=== PATIENT | male | born 1975 | race Caucasian/White ===

== ENCOUNTER 2020-06-24 19:24 | Emergency (ER) | payer OTHER ==
[2020-06-24] MEDS ORDERED: IBUPROFEN 600 MG TABLET (FP) PO ONE ×2 (19:47→20:24)
--- NOTE | 2020-06-24 19:47 | PDOC ---
Rapid Medical Evaluation Time Seen by Provider: 06/24/20 19:45 Medical Evaluation: Allergies Allergy/AdvReac Type Severity Reaction Status Date / Time No Known Allergies Allergy Verified 01/31/20 20:05 06/24/20 19:45 I have performed a brief in-person examination on this patient. CC: left shoulder pain s/p slip and fall PE: No focal findings Orders: xray, motrin Patient will proceed to ED for further evaluation. Discharge Disposition - Diagnosis Shoulder pain - Referrals - Patient Instructions - Post Discharge Activity
[2020-06-24 19:49] VITALS: BP 147/73; PULSE 70; TEMP 97.9; BMI 29.2
--- OUTSIDE RECORDS SUMMARY | 2020-06-24 20:06 | XMS ---
:1975 Author Organization [facility] Support Name Relationship Address Phone [employer] [place] [address] FOOTE, AIMEE [address] [place] [address] AIMEE FOOTE Spouse [address] [place] [place] [address] Re-disclosure Warning The records that you are about to access may contain information from federally- assisted alcohol or drug abuse programs. If such information is present, then the following federally mandated warning applies: This information has been disclosed to you from records protected by federal confidentiality rules (42 CFR part 2). The federal rules prohibit you from making any further disclosure of this information unless further disclosure is expressly permitted by the written consent of the person to whom it pertains or as otherwise permitted by 42 CFR part 2. A general authorization for the release of medical or other information is NOT sufficient for this purpose. The Federal rules restrict any use of the information to criminally investigate or prosecute any alcohol or drug abuse patient.The records that you are about to access may contain highly sensitive health information, the redisclosure of which is protected by Article 27-F of the [facility] Public Health law. If you continue you may haveaccess to information: Regarding HIV / AIDS; Provided by facilities licensed or operated by the [facility] Office of Mental Health; or Provided by the [facility] Office for People With Developmental Disabilities. If such information is present, then the following [facility] mandated warning applies: This information has been disclosed to you from confidential records which are protected by state law. State law prohibits you from making any further disclosure of this information without the specific written consent of the person to whom it pertains, or as otherwise permitted by law. Any unauthorized further disclosure in violation of state law may result in a fine or prison sentence or both. A general authorization for the release of medical or other information is NOT sufficient authorization for further disclosure. Insurance Providers Payer name Policy type Policy ID Covered Covered alliance party's Policy P jose cruz / Coverage alliance party ID relationship to [place] [employer] type [place] [id number]
--- NOTE | 2020-06-24 20:37 | PDOC ---
History of Present Illness - General Chief Complaint: Injury Stated Complaint: FALL Time Seen by Provider: 06/24/20 19:45 - History of Present Illness Initial Comments: 06/24/20 20:35 45-year-old male without comorbidities presents for evaluation of left shoulder pain x1 week after a fall Past History - Medical History Allergies/Adverse Reactions: Allergies Allergy/AdvReac Type Severity Reaction Status Date / Time No Known Allergies Allergy Verified 01/31/20 20:05 Home Medications: Ambulatory Orders Diphenhydramine HCl [Benadryl -] 25 mg PO Q8H #15 capsule 01/31/20 Famotidine [Pepcid] 20 mg PO DAILY #5 tablet 01/31/20 predniSONE [Deltasone -] 40 mg PO DAILY #8 tablet 01/31/20 COPD: No - Psycho-Social/Smoking History Smoking History: Current some day smoker Number of Cigarettes Smoked Daily: 1 Information on smoking cessation initiated: Yes - Substance Abuse Hx (Audit-C & DAST Scrn) How often the patient has a drink containing alcohol: Monthly or less Score: In Men: 4 or > Positive; In Women: 3 or > Positive: 1 Screen Result (Pos requires Nsg. Audit-10AR): Negative Review of Systems - Review of Systems Musculoskeletal: Yes: Joint Pain *Physical Exam - Vital Signs Last Vital Signs Temp Pulse Resp BP Pulse Ox 97.9 F 70 20 147/73 99 06/24/20 19:45 06/24/20 19:45 06/24/20 19:45 06/24/20 19:45 06/24/20 19:45 - Physical Exam 06/24/20 20:36 Left shoulder skin color temperature normal range of motion is full 3 out of 5 with supraspinatus isolation positive impingement maneuvers negative Spurling upper extremity compartments are soft and nontender no gross sensorimotor deficits neurovascular intact Medical Decision Making - Medical Decision Making 06/24/20 20:36 X-rays of the left shoulder show an inferior displaced glenohumeral joint no acute fracture trauma or destructive process arthritic changes at the AC joint glenohumeral joint Left shoulder impingement syndrome possible rotator cuff tear follow-up with Ortho Tylenol Motrin for pain I have reviewed the pathophysiology with the patient. They are in agreement with the treatment plan all questions were answered to their satisfaction. Understanding for follow-up without fail was also conveyed to the patient. Again they are in agreement. Discharge - Discharge Information Problems reviewed: Yes Clinical Impression/Diagnosis: Shoulder pain Condition: Stable Disposition: HOME - Admission No - Follow up/Referral Referrals: David Olivas DO [Staff Physician] - - Patient Discharge Instructions Additional Instructions: Tylenol Motrin as directed for pain. Without fail follow-up with orthopedic surgery in 2 to 3 days for further evaluation and treatment options. Return to the emergency room for further issues. - Post Discharge Activity
== END 2020-06-24 20:50 | disposition home or self-care (01) ==
LOC: JERFT 19:24
DX: M25.512 Pain in left shoulder (principal)
CPT/HCPCS: 73030-TC-LT-FY; 99283-25

== ENCOUNTER 2021-06-05 22:04 | Emergency (ER) | payer OTHER ==
[2021-06-05 22:11] VITALS: BP 117/67; PULSE 82; TEMP 98.5; BMI 25.0
[2021-06-05] MEDS ORDERED: DEXAMETHASONE SOD PHOSPHATE 10 MG/1 ML VIAL IM ONE (22:57)
[2021-06-05] MEDS ORDERED: FAMOTIDINE 20 MG TABLET PO ONE (22:57)
[2021-06-05] MEDS ORDERED: DEXAMETHASONE SOD PHOSPHATE 10 MG/1 ML VIAL ONE (23:17)
[2021-06-05] MEDS ORDERED: FAMOTIDINE 20 MG TABLET ONE (23:18)
== END 2021-06-05 23:56 | disposition home or self-care (01) ==
LOC: JER 22:04
PROC: 3E023NZ Introduction of Analgesics, Hypnotics, Sedatives into Muscle, Percutaneous Approach (ICD-10-PCS; principal; 2021-06-05)
PROC: 3E023GC Introduction of Other Therapeutic Substance into Muscle, Percutaneous Approach (ICD-10-PCS; 2021-06-05)
DX: L23.7 Allergic contact dermatitis due to plants, except food (principal)
CPT/HCPCS: 99283-25; J1100

== ENCOUNTER 2021-08-14 00:05 | Observation (INO) | payer OTHER ==
[2021-08-14 00:33] VITALS: BMI 27.3
[2021-08-14 01:06] LABS: HEMOGLOBIN 13.8 GM/dL (11.7-16.9); MCH 29.8 pg (25.7-33.7); MCHC 34.6 g/dl (32.0-35.9); MEAN CELL VOLUME 86.3 fl (80-96); MEAN PLT VOLUME 7.2 fl (7.5-11.1); PLATELET COUNT 214 10^3/uL (134-434); RBC 4.64 M/mm3 (4.00-5.60); RDW 13.7 % (11.9-15.9); WHITE BLOOD COUNT 5.6 K/mm3 (4.0-10.0)
[2021-08-14 01:19] LABS: INR 0.95 (0.83-1.09); PROTHROMBIN TIME (PATIENT) 11.1 SEC (9.7-13.0)
[2021-08-14 02:56] LABS: ALBUMIN 3.8 g/dl (3.4-5.0); ALK PHOS 114 U/L (45-117); ANION GAP 6 MMOL/L (8-16); BILIRUBIN,TOTAL 0.5 mg/dL (0.2-1); BLOOD UREA NITROGEN 16.9 mg/dL (7-18); CALCIUM 8.4 mg/dL (8.5-10.1); CHLORIDE 110 mmol/L (98-107); CO2 27 mmol/L (21-32); CREATININE 0.9 mg/dL (0.55-1.3); GLUCOSE,RANDOM 102 mg/dL (74-106); SGOT/AST 24 U/L (15-37); SGPT/ALT 31 U/L (13-61); SODIUM 143 mmol/L (136-145); TOT PROT 7.5 g/dl (6.4-8.2)
[2021-08-14] MEDS ORDERED: ASPIRIN 81 MG CHEWABLE TABLETS PO ONE (05:14)
[2021-08-14] MEDS ORDERED: ASPIRIN 81 MG CHEWABLE TABLETS ONE (06:27)
[2021-08-14 06:29] VITALS: TEMP 99.1
[2021-08-14 08:48] VITALS: BP 107/58; PULSE 77
[2021-08-14] MEDS ORDERED: FAMOTIDINE 20 MG TABLET PO SCH (10:00)
== END 2021-08-14 09:01 | disposition home or self-care (01) ==
LOC: JER 00:05 → JERBED 05:13
PROVIDERS: ADMIT Internal Medicine; ATTEND Internal Medicine
DX: R07.9 Chest pain, unspecified (principal); F17.210 Nicotine dependence, cigarettes, uncomplicated; R10.9 Unspecified abdominal pain
CPT/HCPCS: 36415; 71045-TC-FY; 80053; 82550; 82553; 84484; 85027; 85610; 93005; 93010; 99285-25; C9803; G0378; U0003; U0005

== ENCOUNTER 2022-02-02 20:26 | Emergency (ER) | payer OTHER ==
[2022-02-02 20:45] VITALS: BP 154/82; PULSE 68; TEMP 98.1; BMI 26.6
== END 2022-02-02 21:22 | disposition home or self-care (01) ==
LOC: JERFT 20:26
DX: L23.7 Allergic contact dermatitis due to plants, except food (principal)
CPT/HCPCS: 99281-25